=== PATIENT | male | born 1955 | race Hispanic/Latino ===

== ENCOUNTER → 2025-02-17 | Day surgery (SDC) | payer MEDICARE ==
[2025-02-15 14:03] LABS: BASOPHILS % 0.6 % (0.0-1.0); EOSINOPHILS % 0.9 % (0.0-6.0); LYMPHOCYTES % 40.9 % (18.0-39.1); MONOCYTES % 6.8 % (4.4-11.3); NEUTROPHILS % 50.7 % (38.7-80.0); RED CELL DISTRIBUTION WIDTH 12.7 % (11.7-14.4)
[2025-02-15 14:23] LABS: EST GLOMERULAR FILTRATION RATE 78.0 ML/MIN (>=60)
[~2025-02-17] MED LIST: CIALIS20 MG PO; DEXAMETHASONE SOD PHOS INJ 4 MG/ML SDV ONE; EPHEDRINE SULFATE INJ 50 MG/ML VIAL ONE; FENTANYL CITRATE/PF 100MCG/2 ML INJ ONE; KETOROLAC TROMETHAMINE 30 MG/ML VIAL ONE; LIDOCAINE HCL 2% LOCAL INJ 5 ML SDV VIAL INJ ONE; LISINOPRIL PO; LISINOPRIL30 MG PO; METFORMIN HCL500 MG PO; MULTI-VITAMIN1 EACH PO; NORCO 7.5-3251 EACH PO; ONDANSETRON HCL INJ 2MG/ML 2ML 2 MG/ML VIAL ONE; PHENYLEPHRINE HCL 1% 10 MG/ML VIAL ONE; PROPOFOL IV EMULSION 10 MG/ML 20 ML VIAL ONE; ROSUVASTATIN CA10 MG PO
[2025-02-17] MEDS: CEFTRIAXONE 1 GM VIAL ONE (07:18)
[2025-02-17] MEDS: SODIUM CHLORIDE 0.9% 1000ML 1,000 ML ONE (07:18)
[2025-02-17 09:25] VITALS: TEMP 97.9
[2025-02-17] MEDS: PHENAZOPYRIDINE HCL 100 MG TAB ONE (09:57)
[2025-02-17] MEDS: ACETAMINOPHEN/CODEINE 300MG - 30MG TAB ONE (09:57)
[2025-02-17 10:30] VITALS: BP 129/81; PULSE 83; RESP 18; O2SAT 98
== END | disposition home or self-care (01) ==
LOC: OR 06:15
PROVIDERS: ATTEND Urology
DX: L82.1 Other seborrheic keratosis (principal); N21.0 Calculus in bladder; N32.89 Other specified disorders of bladder; N13.70 Vesicoureteral-reflux, unspecified; N40.0 Benign prostatic hyperplasia without lower urinary tract symptoms; N35.912 Unspecified bulbous urethral stricture, male; N39.0 Urinary tract infection, site not specified; R31.0 Gross hematuria; R31.29 Other microscopic hematuria; Z96.0 Presence of urogenital implants; Z01.810 Encounter for preprocedural cardiovascular examination; Z01.812 Encounter for preprocedural laboratory examination; Z01.818 Encounter for other preprocedural examination
CPT/HCPCS: 11420; 14000; 17110; 36415 ×2; 52317; 71046; 74420; 80048; 82948; 85025; 88300; 88305; 93005; C1758; J0696; J1100; J2003; J2371; J2405; J2704; J3010; J7030; 88302; 88304; J1885